=== PATIENT | female | born 1990 | race Caucasian/White ===

== ENCOUNTER 2019-04-05 08:31 | Emergency (ER) | payer MEDICAID, OTHER ==
--- NOTE | 2019-04-05 08:54 | EDPHY ---
General - History Smoking Status: Current every day smoker Time Seen by Provider: 04/05/19 08:53 Narrative: CLINICAL IMPRESSION: Headache ASSESSMENT/PLAN: 29-year-old female presents to the emergency department with reports of a sudden onset, thunderclap or worst headache of her life occurring yesterday, minimally improved after taking aspirin and then reoccurring today. This was associated with nausea, phonophobia and photophobia. Patient reports a distant past history of migraines but does not take regular medication for it. She has a nonfocal neurological exam on arrival. Vital signs are stable and has no associated reports of fever, neck stiffness, meningeal findings, or URI symptoms. CT head and CTA head and neck unremarkable for acute subarachnoid hemorrhage, thrombus, and mass. Labs without significant abnormality. Risks, benefits and indications for lumbar puncture reviewed with the patient. Patient also met with Dr. Thompson. She gave verbal consent for a lumbar puncture which was completed by myself. No xanthochromia, blood, or evidence of infection. Patient received IV analgesics with complete resolution of her symptoms and continued to have nonfocal neuro exam. Based on clinical exam and diagnostic studies, I do not suspect this patient has meningitis, intracranial hypertension, cerebral venous thrombosis, cervical artery dissection, or ischemic stroke. I advised that she follow up with primary care and a neurology follow-up was also provided. Warning signs return to ED sooner discussed in person and discharge papers. DIFFERENTIAL DX: Differential diagnosis for headache includes but not limited to subarachnoid hemorrhage, migraine headache, migraine variant headache, tension headache and infectious causes such as meningitis, pharyngitis and sinusitis. ED PROCEDURES: See lab and/or imaging results below Procedure: Lumbar puncture. Indication: Thunderclap headache, normal CT, CTA head and neck After obtaining verbal informed consent from patient explaining the risks including infection, bleeding, and neurologic damage, a lumbar puncture was performed after the patient was prepped and draped in the usual sterile fashion. Patient was sitting up for procedure. The back was anesthetized with 1% lidocaine. Approximately 4 cc of clear fluid was obtained. No xanthochromia appreciated. Opening pressure was not obtained. There were no complications. The procedure was performed by myself. Patient laid down after procedure for observation. CSF panel ordered. ED COURSE: 9:15 a.m.: Patient seen assessed by myself. No focal neurological deficits. Patient reports some subjective decrease to sensation of the right forehead. Given reported history of thunderclap, worst headache of her life, will pursue CT scan. test ordered. 10:00 a.m.: CT results discussed with Dr. Jain. Negative for bleed and intracranial mass. Case reviewed with Dr. Thompson, specifically regarding the potential need for lumbar puncture. He would like patient to have CTA head and neck first and then will plan to evaluate her. I have revisited the patient, explained her CT results and the recommendation for CTA which she agrees to. I also explained the potential need for LP even if her CTA's are clear and I explained this procedure to her. Patient verbalized understanding and agreement. Labs and IV fluids ordered. 11:50 a.m.: CT angiogram results discussed with Dr. Gore. No acute abnormality, thrombus, bleeding or stroke identified. Discussed with Dr. Thompson. Will discuss LP. Risks, benefits and indications reviewed in detail with the patient including risk for infection, post LP headache, traumatic tap. patient gives verbal consent to procede with LP 1:40 p.m.: Results of lumbar puncture showed normal glucose, normal protein, no red blood cells. Will plan to discharge with primary care and neurology follow-up. Suspect migraine variant versus tension headache. CHIEF COMPLAINT: Headache HPI: 29-year-old female with past medical history of untreated depression and anxiety presents to the emergency department with headache x2 days. Patient reports she was cleaning her home 2 days ago when she experienced a rather sudden onset, severe, "worst headache of her life" in that caused her to lay in a position and she was unable to walk or move. She reported associated phonophobia, photophobia, and nausea. She also reports bilateral tinnitus and intermittent blurry vision from the right eye. She reports taking 5 aspirin, laying down and headache subsided over the next day but never fully went away. This morning she reports the headache returned to the same intensity that she had 2 days ago. She does report a history of migraines although does not take prescription medication for this and has never come to the emergency department for headaches. There is a family history of migraines. She admits to not eating or drinking water well. She has had increased stress recently. She has untreated depression and anxiety and feels this contributes. No reported neck injury, trauma, chiropractic adjustment or deep tissue massage. No associated dizziness or vertigo. No URI symptoms, sore throat, fever or chills. She did not take anything for her headache this morning and was driven here by her boyfriend. PAST MEDICAL HISTORY: Depression and anxiety, untreated See nurse/triage notes for additional history if applicable Pertinent Past Surgical History: ORIF tib-fib fracture age 15 Family History: Family history of migraines Social History: Nonsmoker, denies alcohol regularly REVIEW OF SYSTEMS: All other systems negative Constitutional: No fever, no chills, positive for appetite change, positive for fatigue. Eyes: No discharge, vision change ENT: No sore throat, congestion, ear pain. Cardiovascular: No chest pain, no palpitations. Respiratory: No cough, no shortness of breath. Gastrointestinal: No abdominal pain, positive for nausea, no vomiting, diarrhea. Musculoskeletal: No back pain, positive for neck stiffness joint swelling, joint pain, myalgias. Skin: No rashes, color change. Neurological: Positive for headache, denies dizziness, weakness. PHYSICAL EXAM: General Appearance: Alert, oriented, appropriate, cooperative, NAD, sitting in a dimly lit room, well hydrated, non-toxic appearing, VSS, no hypoxia. HEENT: TMs are clear bilaterally no perforation or FB, no injection, no evidence of serous or mucopurulent otitis. Oropharynx clear is no erythema or exudates, no tonsillar hypertrophy or asymmetry. Dentition without abnormality. Subjective decreased sensation to the ophthalmic branch of cranial nerve 7 on the right side of the face Eyes: PERRLA, no acute vision change, nystagmus, swelling, discharge, pain or photosensitivity. Conjunctiva pink, no pallor or injection. No subjective vision changes today Neck: Supple, nontender, no lymphadenopathy, no midline pain, FROM, no meningismus. Reproducible tenderness to the paravertebral muscles of the cervical spine Respiratory: There are no retractions, lungs are clear to auscultation. Cardiac: Regular rate and rhythm, no murmurs or gallops. Gastrointestinal: Abdomen is soft, nontender, bowel sounds normal, no masses/ hernia, no rigidity, guarding or focal peritoneal findings. Neurological: Alert and oriented x 3, patient reports decreased sensation to the right forehead, remainder of cranial nerves 2-12 grossly intact, normal gait no ataxia, DTR's intact, normal sensation and strength Skin: Warm, dry, no rashes, no nodules on palpation. Musculoskeletal: Extremities are symmetrical, full range of motion, no tenderness, deformity, swelling, or erythema. Psychiatric: Patient is oriented X 3, there is no agitation. MEDICAL DECISION MAKING: Secondary supervising physician at time of evaluation was Dr. Thompson who also saw and examined patient . Diagnosis: Migraine variant headache. New, requires workup Summary: See Assessment and Plan for summary of ED visit Clinical lab tests: ordered / reviewed. Independent visualization of images, tracing, or specimens: Yes. Decision to obtain medical records or history from someone other than the patient: No Review / Summarize previous medical records: None available Discussed patient with another provider: Radiology, Dr. Thompson Patient Progress: Improved, stable for discharge. (Wil Cox) Medical Decision Making: Independent physician evaluation: I evaluated and participated in the management of the patient. I also evaluated the patient independently. My co-signature indicates that I have reviewed this chart and I agree with the findings and plan of care as documented. My personal H&P findings include: Patient presents the emergency department with a sudden onset headache which occurred 2 days ago without associated focal neurologic symptoms but was associated with photophobia. She has had no fever or infectious symptoms. She denies any peripheral neurologic complaints currently. Physical exam: General Appearance: Alert, no distress Eyes: Pupils equal and round no pallor or injection ENT, Mouth: Mucous membranes moist Respiratory: There are no retractions, lungs are clear to auscultation Cardiovascular: Regular rate and rhythm Gastrointestinal: Abdomen is soft and nontender, no masses, bowel sounds normal Neurological: A&O, normal motor function, normal sensory exam, normal cranial nerves Skin: Warm and dry, no rashes Musculoskeletal: Neck is supple nontender Extremities: symmetrical, full range of motion Psychiatric: Patient is oriented X 3, there is no agitation Patient presents the emergency department with sudden onset of worst headache of her life. The patient was taken for noncontrast head CT scan which demonstrated no evidence of intracranial hemorrhage. She had CT angiography of the head neck which is also normal. The patient did undergo lumbar puncture performed by the physician costumer assistant which demonstrated no evidence of infection or hemorrhage. Patient was treated for migraine in the emergency department with improvement of her symptoms. At this point time I do feel the patient can be discharged home with customary aftercare instructions and return precautions. (Steven Thompson) - Diagnostics Imaging Results: Imaging Impressions Head CT 04/05/19 09:11 Impression: Normal brain. No intracranial hemorrhage or swelling. Findings discussed with Emergency Department physician costumer assistant, BRANDY Barnes on April 05, 2019 at 1002 hours. Head CTA 04/05/19 10:07 Impression: 1. No acute vascular findings. 2. Mild paraseptal emphysema in the lung apices. 3. Degenerative change in the cervical spine as above. Stenoses are calculated using [place] Symptomatic Carotid Endarterectomy Trial (NASCET) criteria. Findings discussed with Wil Cox PA-C on April 05, 2019 at 1148 hours. Neck CTA 04/05/19 10:07 Impression: 1. No acute vascular findings. 2. Mild paraseptal emphysema in the lung apices. 3. Degenerative change in the cervical spine as above. Stenoses are calculated using [place] Symptomatic Carotid Endarterectomy Trial (NASCET) criteria. Findings discussed with Wil Cox PA-C on April 05, 2019 at 1148 hours. - Objective Vital Signs: Initial Vital Signs Temperature (C) 36.9 C 04/05/19 08:37 Heart Rate 95 04/05/19 08:37 Respiratory Rate 16 04/05/19 08:37 Blood Pressure 128/99 H 04/05/19 08:37 O2 Sat (%) 98 04/05/19 08:37 O2 Delivery Mode Room Air Allergies/Adverse Reactions: Opioids - Morphine Analogues Allergy (Verified 04/05/19 08:37) Home Medications: Medication Instructions Recorded Naproxen 04/05/19 Laboratory Results: Laboratory Results 04/05/19 10:25 04/05/19 10:25 04/05/19 04/05/19 04/05/19 12:55 12:55 10:25 WBC RBC Hgb Hct MCV MCH MCHC RDW Plt Count MPV Neut % (Auto) Lymph % (Auto) [place] % (Auto) Eos % (Auto) Baso % (Auto) Nucleat RBC Rel Count Absolute Neuts (auto) Absolute Lymphs (auto) Absolute Monos (auto) Absolute Eos (auto) Absolute Basos (auto) Absolute Nucleated RBC Immature Gran % Immature Gran # Sodium 141 mEq/L mEq/L (135-145) Potassium 4.4 mEq/L mEq/L (3.5-5.2) Chloride 109 mEq/L mEq/L (97-110) Carbon Dioxide 22 mEq/l mEq/l (22-31) Anion Gap 10 mEq/L mEq/L (6-14) BUN 11 mg/dL mg/dL (7-23) Creatinine 0.6 mg/dL mg/dL (0.6-1.0) Estimated GFR > 60 Glucose 97 mg/dL mg/dL (70-100) Calcium 9.3 mg/dL mg/dL (8.5-10.4) Urine Test CSF Tube Number 4 1 CSF Appearance CLEAR CLEAR (CLEAR) (CLEAR) CSF Color COLORLESS COLORLESS (COLORLESS) (COLORLESS) CSF Supernatant Not Reported Not Reported CSF WBC 0 /mm3 /mm3 0 /mm3 /mm3 (0-5) (0-5) CSF RBC 0 /mm3 /mm3 0 /mm3 /mm3 (0-0) (0-0) CSF Glucose 53 mg/dL mg/dL (50-75) CSF Total Protein 36 mg/dL mg/dL (12-60) 04/05/19 04/05/19 10:25 09:15 WBC 4.54 10^3/uL 10^3/uL (3.80-9.50) RBC 4.33 10^6/uL 10^6/uL (4.18-5.33) Hgb 14.2 g/dL g/dL (12.6-16.3) Hct 42.3 % % (38.0-47.0) MCV 97.7 fL fL (81.5-99.8) MCH 32.8 pg pg (27.9-34.1) MCHC 33.6 g/dL g/dL (32.4-36.7) RDW 12.8 % % (11.5-15.2) Plt Count 214 10^3/uL 10^3/uL (150-400) MPV 10.9 fL fL (8.7-11.7) Neut % (Auto) 74.7 % H % (39.3-74.2) Lymph % (Auto) 20.3 % % (15.0-45.0) [place] % (Auto) 4.2 % L % (4.5-13.0) Eos % (Auto) 0.4 % L % (0.6-7.6) Baso % (Auto) 0.2 % L % (0.3-1.7) Nucleat RBC Rel Count 0.0 % % (0.0-0.2) Absolute Neuts (auto) 3.39 10^3/uL 10^3/uL (1.70-6.50) Absolute Lymphs (auto) 0.92 10^3/uL L 10^3/uL (1.00-3.00) Absolute Monos (auto) 0.19 10^3/uL L 10^3/uL (0.30-0.80) Absolute Eos (auto) 0.02 10^3/uL L 10^3/uL (0.03-0.40) Absolute Basos (auto) 0.01 10^3/uL L 10^3/uL (0.02-0.10) Absolute Nucleated RBC 0.00 10^3/uL 10^3/uL (0-0.01) Immature Gran % 0.2 % % (0.0-1.1) Immature Gran # 0.01 10^3/uL 10^3/uL (0.00-0.10) Sodium Potassium Chloride Carbon Dioxide Anion Gap BUN Creatinine Estimated GFR Glucose Calcium Urine Test NEGATIVE CSF Tube Number CSF Appearance CSF Color CSF Supernatant CSF WBC CSF RBC CSF Glucose CSF Total Protein Microbiology Results: MICROBIOLOGY 04/05/19 12:55 Cerebral Spinal Fluid Gram Stain - Final Medications Given: Discontinued Medications Dexamethasone (Decadron Injection) 10 mg IVP EDNOW ONE Stop: 04/05/19 11:56 Last Admin: 04/05/19 12:06 Dose: 10 mg Diphenhydramine HCl (Benadryl Injection) 25 mg IVP EDNOW ONE Stop: 04/05/19 11:56 Last Admin: 04/05/19 12:03 Dose: 25 mg Sodium Chloride (Ns) 1,000 mls @ 0 mls/hr IV EDNOW ONE; Wide Open PRN Reason: Protocol Stop: 04/05/19 10:12 Last Admin: 04/05/19 10:24 Dose: 1,000 mls Ketorolac Tromethamine (Toradol) 30 mg IVP EDNOW ONE Stop: 04/05/19 11:56 Last Admin: 04/05/19 12:01 Dose: 30 mg Metoclopramide HCl (Reglan Injection) 10 mg IVP EDNOW ONE Stop: 04/05/19 11:56 Last Admin: 04/05/19 12:11 Dose: 10 mg Departure - Departure Disposition: Home, Routine, Self-Care Clinical Impression: Headache, variant migraine Condition: Good Instructions: Acute Headache (ED) Additional Instructions: DISCHARGE INSTRUCTIONS FROM YOUR DOCTOR Thank you for visiting our emergency department today. You were treated by a physician costumer assistant today and your case was reviewed with our ED Attending physician. Please keep in mind that discharge from the emergency department does not mean that there is nothing wrong - it simply means that we have not identified an emergency condition that requires further evaluation or treatment in the hospital. You should always plan to follow up with primary care for re- evaluation of your condition in the next 2-3 days. If you have been referred to a specialist, please call as soon as possible (today or tomorrow) to schedule your follow up appointment at the appropriate time. YOUR DIAGNOSTIC WORKUP IN THE EMERGENCY DEPARTMENT TONIGHT INCLUDED CT SCAN, CT ANGIOGRAM OF THE HEAD AND NECK, LAB WORK, AND LUMBAR PUNCTURE. WE SEE NO EVIDENCE OF SUBARACHNOID HEMORRHAGE, MENINGITIS, INFECTION, MASS OR TUMOR. WE HAVE TREATED YOU WITH IV STEROIDS AND PAIN MEDICATION WITH IMPROVEMENT IN HEADACHE. PLEASE STAY WELL HYDRATED, EAT REGULAR MEALS. PLEASE FOLLOW-UP WITH A PRIMARY CARE DOCTOR, IF YOU DO NOT HAVE 1 A REFERRAL WAS GIVEN. WE ALSO GAVE YOU A REFERRAL TO NEUROLOGY. PLEASE CALL FOR A FOLLOW-UP APPOINTMENT IN THE NEXT WEEK. PLEASE REST THE REST OF TODAY. RETURN TO THE EMERGENCY DEPARTMENT IMMEDIATELY FOR SEVERE HEADACHE, ALTERED MENTAL STATUS, SEIZURE ACTIVITY, VOMITING, BACK PAIN, FEVERS, OR ANY OTHER CONCERNS. People present with illnesses and injuries in different ways, and it is always possible that we have missed something. You may always return for re-evaluation if symptoms worsen or if they are not improving or if you develop new/different symptoms. Again, thank you for choosing our emergency department. We hope that you feel better. Referrals: NONE *PRIMARY CARE P,. [Primary Care Provider] - As per Instructions Farhat Maldonado MD [Medical Doctor] - 1-2 days without fail Demario Dutta MD [Medical Doctor] - 5-7 days, call for appt.
[2019-04-05] MEDS ORDERED: NS 1,000 ML IV ONE (10:11)
[2019-04-05] MEDS ORDERED: IOPAMIDOL (ISOVUE 370) 100 ML BTL IV ONE (10:14)
[2019-04-05 10:44] LABS: PLATELET COUNT 214 10^3/uL (150-400)
[2019-04-05] MEDS ORDERED: METOCLOPRAMIDE 10 MG/2 ML VIAL IVP ONE (11:55)
[2019-04-05] MEDS ORDERED: DEXAMETHASONE 10 MG/ML VIAL IVP ONE (11:55)
[2019-04-05] MEDS ORDERED: KETOROLAC 30 MG/1 ML SDV IVP ONE (11:55)
[2019-04-05 12:56] VITALS: BP 121/76
== END 2019-04-05 13:59 | disposition home or self-care (01) ==
PROC: 009U3ZX Drainage of Spinal Canal, Percutaneous Approach, Diagnostic (ICD-10-PCS; principal; 2019-04-05)
DX: R51 Headache (principal); M50.321 Other cervical disc degeneration at C4-C5 level; F32.9 Major depressive disorder, single episode, unspecified; F41.9 Anxiety disorder, unspecified; F17.200 Nicotine dependence, unspecified, uncomplicated
CPT/HCPCS: 96374; J1100; J1200; J1885; J2765; Q9967